=== PATIENT | female | born 1970 | race Caucasian/White ===

== ENCOUNTER 2017-10-27 18:29 | Emergency (ER) | payer MEDICAID ==
[~2017-10-27] VITALS: Ht 157.5 cm; Wt 70.8 kg
[~2017-10-27 18:29] MED LIST: HYDROCODONE BIT1 T54 PO
[2017-10-27 20:03] VITALS: BP 142/92; Ht 157.5 cm; Wt 70.8 kg
== END 2017-10-27 22:05 | disposition home or self-care (01) ==
LOC: ED 18:29
DX: B34.9 Viral infection, unspecified (principal)